=== PATIENT | male | born 1970 | race Caucasian/White ===

== ENCOUNTER 2021-04-25 18:24 | Emergency (ER) | payer SELFPAY ==
[~2021-04-25] VITALS: Ht 182.9 cm; Wt 95.3 kg
[2021-04-25] MEDS ORDERED: diphenhdrAMINE HCL 50 MG/1 ML VL IV ONE (18:45)
[2021-04-25] MEDS ORDERED: SODIUM CHLORIDE 0.9% 1,000 ML IV ONE (18:45)
[2021-04-25] MEDS ORDERED: methylPREDNISolone SOD SUCC 125 MG/2 ML VL IV ONE (18:45)
[2021-04-25] MEDS ORDERED: EPINEPHrine HCL 1 MG/1 ML AMP IM ONE (19:15)
[2021-04-25 23:00] VITALS: BP 118/76
== END 2021-04-25 23:07 | disposition home or self-care (01) ==
LOC: ER 18:24
DX: T78.49XA Other allergy, initial encounter (principal); X58.XXXA Exposure to other specified factors, initial encounter; Y93.89 Activity, other specified; Y92.89 Other specified places as the place of occurrence of the external cause; Y99.8 Other external cause status
CPT/HCPCS: 96361; 96372; 96374; 96375; 99285; J0171; J1200; J2930; J7030

== ENCOUNTER 2021-08-10 12:41 | Emergency (ER) | payer SELFPAY ==
[~2021-08-10] VITALS: Ht 182.9 cm; Wt 99.8 kg
[2021-08-10 14:26] VITALS: BP 112/77
[2021-08-10] MEDS ORDERED: cefTRIAXone SOD 1,000 MG VL IM ONE (15:00)
[2021-08-10] MEDS ORDERED: LIDOCAINE 1% HCL (LOCAL ANESTH.) INJ 20ML MDV ONE (15:03)
== END 2021-08-10 15:30 | disposition home or self-care (01) ==
LOC: ER 12:41
DX: L02.414 Cutaneous abscess of left upper limb (principal); F17.210 Nicotine dependence, cigarettes, uncomplicated
CPT/HCPCS: 10060; 87077; 87186; 87205; 96372; 99283; J0696; J2001

== ENCOUNTER 2021-08-12 10:34 | Emergency (ER) | payer SELFPAY ==
[~2021-08-12] VITALS: Ht 180.3 cm; Wt 99.8 kg
[2021-08-12 13:45] VITALS: BP 142/95
== END 2021-08-12 14:02 | disposition home or self-care (01) ==
LOC: ER 10:34
DX: L02.414 Cutaneous abscess of left upper limb (principal); F17.210 Nicotine dependence, cigarettes, uncomplicated; I10 Essential (primary) hypertension

== ENCOUNTER → 2024-02-20 | Outpatient (CLI) | payer OTHER | END | disposition home or self-care (01) | LOC: XYW 09:49 | PROVIDERS: ATTEND Internal Medicine | DX: I51.7 Cardiomegaly (principal); I51.89 Other ill-defined heart diseases; I49.49 Other premature depolarization; R00.2 Palpitations | CPT/HCPCS: 93306 ==